=== PATIENT | female | born 1985 | race American Indian/Alaskan Native ===

== ENCOUNTER 2017-01-12 13:40 | Emergency (ER) | payer SELFPAY ==
[2017-01-12 14:26] LABS: Basophils % (Auto) 0.4 % (0.0-1.8); Eosinophils % (Auto) 0.4 % (0.0-4.3); Hematocrit 44.9 % (30.3-42.9); Hemoglobin 15.5 gm/dl (10.1-14.3); Mean Corpuscular HGB Conc 35 % (30-34); Mean Corpuscular Hemoglobin 31 pg (28-32); Mean Corpuscular Volume 90 fl (79-97); Platelet Count 202 K/mm3 (140-440); Red Blood Count 4.97 M/mm3 (3.65-5.03); Red Cell Distribution Width 13.8 % (13.2-15.2); White Blood Count 9.5 K/mm3 (4.5-11.0)
[2017-01-12 14:53] LABS: Alanine Aminotransferase 15 units/L (7-56); Albumin 3.9 g/dL (3.9-5); Albumin/Globulin Ratio 0.8 %; Alkaline Phosphatase 77 units/L (35-129); Anion Gap 18 mmol/L; Blood Urea Nitrogen 10 mg/dL (7-17); Calcium 9.4 mg/dL (8.4-10.2); Carbon Dioxide 26 mmol/L (22-30); Chloride 97.9 mmol/L (98-107); Glucose 86 mg/dL (65-100); Lipase 15 units/L (13-60); Potassium 4.4 mmol/L (3.6-5.0); Sodium 137 mmol/L (137-145); Total Protein 8.5 g/dL (6.3-8.2)
[2017-01-12 16:21] LABS: Bilirubin,Urine NEG (Negative); Blood,Urine MOD (Negative); Ketones,Urine NEG (Negative); Leukocyte Esterase,Urine LG (Negative); Nitrite,Urine POS (Negative); Urobilinogen,Urine < 2.0 mg/dL (<2.0)
[2017-01-12 16:24] LABS: WBC,Urine > 182.0 /HPF (0.0-6.0)
[2017-01-12 16:25] LABS: Bacteria,Urine 2+ /HPF (Negative)
[2017-01-12] MEDS ORDERED: TORADOL IV ONE (23:38)
[2017-01-12] MEDS ORDERED: NACL 0.9% 1000 ML 1,000 ML IV ONE (23:38)
[2017-01-12] MEDS ORDERED: ROCEPHIN/NS 1 GM/50 ML 1 GM/50 ML BAG IV ONE (23:38)
[2017-01-12] MEDS ORDERED: MORPHINE IV ONE (23:38)
[2017-01-12] MEDS ORDERED: ZOFRAN IV ONE (23:38)
--- NOTE | 2017-01-12 23:39 | Emergency Department Report ---
ED General Adult HPI - General Chief complaint: Abdominal Pain Stated complaint: ABDOMINAL PAIN Time Seen by Provider: 01/12/17 23:25 Source: patient Mode of arrival: Ambulatory Limitations: No Limitations - History of Present Illness Initial comments: This is a 31-year-old female. She was previously unknown to me. She does not have a primary care doctor. She denies chronic medical conditions. Denies a history of recent abdominal surgeries. The patient presents to the ER complaining of urinary frequency, bilateral flank pain, sensation of incomplete voiding, thirst but nausea, and positive subjective fever. Mild lower abdominal cramping. No vaginal discharge. No right lower quadrant pain. No vaginal bleeding. Symptoms have been constant for the past 3-4 days. Pain increases with range of motion and twisting, decreases with rest. -: Gradual Location: back, abdomen Radiation: back, abdomen Quality: aching Consistency: constant Improves with: rest Worsens with: movement Associated Symptoms: malaise, nausea/vomiting, weakness. denies: confusion, chest pain, cough, headaches, loss of appetite - Related Data Previous Rx's Medication Instructions Recorded Last Taken Type Acetaminophen/Codeine [Tylenol #3] 1 tab PO Q6H PRN #20 tab 07/07/13 Unknown Rx Methocarbamol [Robaxin] 750 mg PO Q8H PRN #15 tablet 07/07/13 Unknown Rx predniSONE [Deltasone] 50 mg PO QDAY #5 tab 07/07/13 Unknown Rx Cyclobenzaprine [Flexeril 10 MG 10 mg PO TID PRN #30 tablet 07/07/14 Unknown Rx TAB] Ibuprofen [Motrin 800 MG tab] 800 mg PO Q8H PRN #30 tablet 07/07/14 Unknown Rx oxyCODONE /ACETAMINOPHEN [Percocet 2 tab PO Q6HR PRN #30 tablet 07/07/14 Unknown Rx 5/325] Ibuprofen [Motrin] 600 mg PO Q8H PRN #30 tablet 01/13/17 Unknown Rx Levofloxacin [Levaquin] 750 mg PO QDAY #10 tablet 01/13/17 Unknown Rx Metoclopramide [Reglan] 10 mg PO QID PRN #30 tablet 01/13/17 Unknown Rx oxyCODONE [Roxicodone] 5 mg PO Q6HR PRN #15 tablet 01/13/17 Unknown Rx Allergies Allergy/AdvReac Type Severity Reaction Status Date / Time No Known Allergies Allergy Verified 01/12/17 14:05 ED Review of Systems ROS: Stated complaint: ABDOMINAL PAIN Other details as noted in HPI Constitutional: malaise Eyes: denies: vision change ENT: denies: epistaxis Respiratory: denies: cough Cardiovascular: denies: chest pain Gastrointestinal: abdominal pain, nausea Genitourinary: frequency Musculoskeletal: back pain Skin: denies: lesions Neurological: denies: headache ED Past Medical Hx - Past Medical History Hx Asthma: Yes Additional medical history: sciatica - Surgical History Additional Surgical History: - Social History Smoking Status: Current Every Day Smoker Substance Use Type: Alcohol - Medications Home Medications: Home Medications Medication Instructions Recorded Confirmed Last Taken Type Acetaminophen/Codeine [Tylenol #3] 1 tab PO Q6H PRN #20 tab 07/07/13 07/07/14 Unknown Rx Methocarbamol [Robaxin] 750 mg PO Q8H PRN #15 tablet 07/07/13 07/07/14 Unknown Rx predniSONE [Deltasone] 50 mg PO QDAY #5 tab 07/07/13 07/07/14 Unknown Rx Cyclobenzaprine [Flexeril 10 MG 10 mg PO TID PRN #30 tablet 07/07/14 Unknown Rx TAB] Ibuprofen [Motrin 800 MG tab] 800 mg PO Q8H PRN #30 tablet 07/07/14 Unknown Rx oxyCODONE /ACETAMINOPHEN [Percocet 2 tab PO Q6HR PRN #30 tablet 07/07/14 Unknown Rx 5/325] Ibuprofen [Motrin] 600 mg PO Q8H PRN #30 tablet 01/13/17 Unknown Rx Levofloxacin [Levaquin] 750 mg PO QDAY #10 tablet 01/13/17 Unknown Rx Metoclopramide [Reglan] 10 mg PO QID PRN #30 tablet 01/13/17 Unknown Rx oxyCODONE [Roxicodone] 5 mg PO Q6HR PRN #15 tablet 01/13/17 Unknown Rx ED Physical Exam - General Limitations: No Limitations General appearance: alert, in no apparent distress - Head Head exam: Present: atraumatic, normocephalic - Eye Eye exam: Present: normal appearance, EOMI. Absent: nystagmus - ENT ENT exam: Present: normal exam, normal orophraynx, mucous membranes moist, normal external ear exam - Neck Neck exam: Present: normal inspection, full ROM. Absent: tenderness, meningismus - Respiratory Respiratory exam: Present: normal lung sounds bilaterally. Absent: respiratory distress, wheezes, rales, rhonchi, stridor, chest wall tenderness, accessory muscle use, decreased breath sounds, prolonged expiratory - Cardiovascular Cardiovascular Exam: Present: regular rate, normal rhythm, normal heart sounds. Absent: bradycardia, tachycardia, irregular rhythm, systolic murmur, diastolic murmur, rubs, gallop - GI/Abdominal GI/Abdominal exam: Present: soft, tenderness (there is suprapubic tenderness. There is no rebound, guarding or peritoneal signs.), normal bowel sounds. Absent: distended, guarding, rebound, rigid - Extremities Exam Extremities exam: Present: normal inspection, full ROM, normal capillary refill. Absent: pedal edema, joint swelling, calf tenderness - Back Exam Back exam: Present: normal inspection, full ROM, CVA tenderness (R), CVA tenderness (L). Absent: tenderness - Neurological Exam Neurological exam: Present: alert, oriented X3, normal gait, other (Extraocular movements intact. Tongue midline. No facial droop. Facial sensation intact to light touch in the V1, V2, V3 distribution bilaterally. 5 and 5 strength in 4 extremities.. Sensation is intact to light touch in 4 extremities.). Absent : motor sensory deficit - Psychiatric Psychiatric exam: Present: normal affect, normal mood - Skin Skin exam: Present: warm, dry, intact, normal color. Absent: rash ED Course Vital Signs 01/12/17 01/13/17 01/13/17 14:05 00:10 01:31 Temperature 98.8 F Pulse Rate 99 H 94 H 99 H Respiratory 18 18 Rate Blood Pressure 140/90 Blood Pressure 136/84 131/80 [Right] O2 Sat by Pulse 98 98 97 Oximetry - EJ/Peripheral Line Arm L Time Out Performed: Yes Indications: other (IV is placed by myself to expedite treatment) Skin Cleansed in Sterile Fashion: Yes Size: 20 Dressing Placed: Tegaderm Patient Tolerated Procedure: well ED Medical Decision Making - Lab Data Result diagrams: 01/12/17 14:12 01/12/17 14:12 Vital Signs 01/12/17 01/13/17 14:05 00:10 Temperature 98.8 F Pulse Rate 99 H 94 H Respiratory 18 Rate Blood Pressure 140/90 Blood Pressure 136/84 [Right] O2 Sat by Pulse 98 98 Oximetry Lab Results 01/12/17 01/12/17 01/12/17 Range/Units 14:10 14:12 14:12 WBC 9.5 (4.5-11.0) K/mm3 RBC 4.97 (3.65-5.03) M/mm3 Hgb 15.5 H (10.1-14.3) gm/dl Hct 44.9 H (30.3-42.9) % MCV 90 (79-97) fl MCH 31 (28-32) pg MCHC 35 H (30-34) % RDW 13.8 (13.2-15.2) % Plt Count 202 (140-440) K/mm3 Lymph % (Auto) 17.5 (13.4-35.0) % [place] % (Auto) 9.7 H (0.0-7.3) % Eos % (Auto) 0.4 (0.0-4.3) % Baso % (Auto) 0.4 (0.0-1.8) % Lymph # 1.7 (1.2-5.4) K/mm3 [place] # 0.9 H (0.0-0.8) K/mm3 Eos # 0.0 (0.0-0.4) K/mm3 Baso # 0.0 (0.0-0.1) K/mm3 Seg Neutrophils % 72.0 H (40.0-70.0) % Seg Neutrophils # 6.8 (1.8-7.7) K/mm3 Sodium 137 (137-145) mmol/L Potassium 4.4 (3.6-5.0) mmol/L Chloride 97.9 L (98-107) mmol/L Carbon Dioxide 26 (22-30) mmol/L Anion Gap 18 mmol/L BUN 10 (7-17) mg/dL Creatinine 0.8 (0.7-1.2) mg/dL Estimated GFR > 60 ml/min BUN/Creatinine Ratio 12.50 % Glucose 86 (65-100) mg/dL Calcium 9.4 (8.4-10.2) mg/dL Total Bilirubin 0.50 (0.1-1.2) mg/dL AST 19 (5-40) units/L ALT 15 (7-56) units/L Alkaline Phosphatase 77 (35-129) units/L Total Protein 8.5 H (6.3-8.2) g/dL Albumin 3.9 (3.9-5) g/dL Albumin/Globulin Ratio 0.8 % Lipase 15 (13-60) units/L HCG, Qual (Negative) Urine Color Yellow (Yellow) Urine Turbidity Cloudy (Clear) Urine pH 5.0 (5.0-7.0) Ur Specific Lucien 1.011 (1.003-1.030) Urine Protein 100 mg/dl (Negative) mg/dL Urine Glucose (UA) Neg (Negative) mg/dL Urine Ketones Neg (Negative) mg/dL Urine Blood Mod (Negative) Urine Nitrite Pos (Negative) Urine Bilirubin Neg (Negative) Urine Urobilinogen < 2.0 (<2.0) mg/dL Ur Leukocyte Esterase Lg (Negative) Urine WBC (Auto) > 182.0 H (0.0-6.0) /HPF Urine RBC (Auto) 75.0 (0.0-6.0) /HPF U Epithel Cells (Auto) 1.0 (0-13.0) /HPF Urine Bacteria (Auto) 2+ (Negative) /HPF Urine WBC Clumps 3+ /HPF /15/17 Range/Units 14:12 WBC (4.5-11.0) K/mm3 RBC (3.65-5.03) M/mm3 Hgb (10.1-14.3) gm/dl Hct (30.3-42.9) % MCV (79-97) fl MCH (28-32) pg MCHC (30-34) % RDW (13.2-15.2) % Plt Count (140-440) K/mm3 Lymph % (Auto) (13.4-35.0) % [place] % (Auto) (0.0-7.3) % Eos % (Auto) (0.0-4.3) % Baso % (Auto) (0.0-1.8) % Lymph # (1.2-5.4) K/mm3 [place] # (0.0-0.8) K/mm3 Eos # (0.0-0.4) K/mm3 Baso # (0.0-0.1) K/mm3 Seg Neutrophils % (40.0-70.0) % Seg Neutrophils # (1.8-7.7) K/mm3 Sodium (137-145) mmol/L Potassium (3.6-5.0) mmol/L Chloride (98-107) mmol/L Carbon Dioxide (22-30) mmol/L Anion Gap mmol/L BUN (7-17) mg/dL Creatinine (0.7-1.2) mg/dL Estimated GFR ml/min BUN/Creatinine Ratio % Glucose (65-100) mg/dL Calcium (8.4-10.2) mg/dL Total Bilirubin (0.1-1.2) mg/dL AST (5-40) units/L ALT (7-56) units/L Alkaline Phosphatase (35-129) units/L Total Protein (6.3-8.2) g/dL Albumin (3.9-5) g/dL Albumin/Globulin Ratio % Lipase (13-60) units/L HCG, Qual Negative (Negative) Urine Color (Yellow) Urine Turbidity (Clear) Urine pH (5.0-7.0) Ur Specific Lucien (1.003-1.030) Urine Protein (Negative) mg/dL Urine Glucose (UA) (Negative) mg/dL Urine Ketones (Negative) mg/dL Urine Blood (Negative) Urine Nitrite (Negative) Urine Bilirubin (Negative) Urine Urobilinogen (<2.0) mg/dL Ur Leukocyte Esterase (Negative) Urine WBC (Auto) (0.0-6.0) /HPF Urine RBC (Auto) (0.0-6.0) /HPF U Epithel Cells (Auto) (0-13.0) /HPF Urine Bacteria (Auto) (Negative) /HPF Urine WBC Clumps /HPF - Medical Decision Making differential diagnosis: Urinary tract infection, pyelonephritis Assessment and plan: 31-year-old female with irritative and obstructive urinary symptoms, urinalysis suggestive of UTI, and CVA tenderness, most likely simple pyelonephritis. She is afebrile, with reassuring vital signs, and is tolerating liquid feeds. She felt improved after IV fluids, pain medication, nausea medication, she is loaded with 1 g of ceftriaxone. She is young, with no medical comorbidities, and is a suitable candidate for outpatient treatment. She will be discharged with pain medication, nausea medication, oral antibiotic therapy, and instructions to follow up with outpatient primary care. Return precautions were reviewed. Critical care attestation.: If time is entered above; I have spent that time in minutes in the direct care of this critically ill patient, excluding procedure time. ED Disposition Clinical Impression: Pyelonephritis Disposition: DC-01 TO HOME OR SELFCARE Is pt being admited?: No Does the pt Need Aspirin: No Condition: Stable Instructions: Acute Pyelonephritis (ED) Additional Instructions: Symptoms most likely coming from urinary tract infection, kidney infection. Do not consume alcohol for the next 2 weeks. Cultures was sent today, results will be available in the next 3-5 days. Have a primary care doctor contact the medical records department to obtain culture results. Take the pain medication , nausea medication, antibiotics as directed. Return to the ER right away with new pain, worsened pain, migration of pain, intractable nausea or vomiting, confusion, inability to tolerate liquid feeds, new, worsening or different symptoms. Prescriptions: Ibuprofen [Motrin] 600 mg PO Q8H PRN #30 tablet PRN Reason: Pain Levofloxacin [Levaquin] 750 mg PO QDAY #10 tablet Metoclopramide [Reglan] 10 mg PO QID PRN #30 tablet PRN Reason: Nausea oxyCODONE [Roxicodone] 5 mg PO Q6HR PRN #15 tablet PRN Reason: Pain Referrals: PRIMARY CAREMD [Primary Care Provider] - 3-5 Days NETO BECKER MD [Staff Physician] - 3-5 Days VERO FISCHER MD [Staff Physician] - 3-5 Days [facility] [Provider Group] - 3-5 Days Forms: Work/School Release Form(ED)
[2017-01-13 01:32] VITALS: BP 131/80
== END 2017-01-13 01:57 | disposition home or self-care (01) ==
LOC: ED 13:40
DX: N12 Tubulo-interstitial nephritis, not specified as acute or chronic (principal); J45.909 Unspecified asthma, uncomplicated; F17.200 Nicotine dependence, unspecified, uncomplicated
CPT/HCPCS: 36415; 36569; 80053; 81001; 83690; 84703; 85025; 87086; 96365; 96375; 99283; J0696; J1885; J2270; J2405; J7030

== ENCOUNTER 2021-05-16 22:29 | Emergency (ER) | payer SELFPAY ==
[2021-05-16] MEDS ORDERED: IBUPROFEN 800 MG TAB PO ONE (23:07)
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
[2021-05-17 02:16] VITALS: BP 138/98
== END 2021-05-17 02:00 | disposition home or self-care (01) ==
LOC: ED 22:29
DX: S93.402A Sprain of unspecified ligament of left ankle, initial encounter (principal); J45.909 Unspecified asthma, uncomplicated; F10.20 Alcohol dependence, uncomplicated; F17.200 Nicotine dependence, unspecified, uncomplicated; V43.92XA Unspecified car occupant injured in collision with other type car in traffic accident, initial encounter; Y93.89 Activity, other specified; Y92.89 Other specified places as the place of occurrence of the external cause; Y99.8 Other external cause status
CPT/HCPCS: 99283

== ENCOUNTER 2021-08-26 16:00 | Emergency (ER) | payer BC, OTHER ==
[2021-08-26] MEDS ORDERED: SODIUM CHLORIDE 0.9% 1000 ML 1,000 ML IV ONE (16:35)
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
[2021-08-26 17:14] LABS: Basophils % (Auto) 0.4 % (0.0-1.8); Eosinophils # (Auto) 0.1 K/mm3 (0.0-0.4); Eosinophils % (Auto) 0.9 % (0.0-4.3); Hematocrit 42.3 % (30.3-42.9); Hemoglobin 14.2 gm/dl (10.1-14.3); Lymphocytes # (Auto) 1.8 K/mm3 (1.2-5.4); Lymphocytes % (Auto) 19.2 % (13.4-35.0); Mean Corpuscular HGB Conc 34 % (30-34); Mean Corpuscular Volume 94 fl (79-97); Monocytes # (Auto) 0.7 K/mm3 (0.0-0.8); Platelet Count 280 K/mm3 (140-440); Red Blood Count 4.52 M/mm3 (3.65-5.03); Red Cell Distribution Width 14.5 % (13.2-15.2)
[2021-08-26 17:37] LABS: Alanine Aminotransferase 13 units/L (7-56); Albumin 3.7 g/dL (3.9-5); BUN/Creatinine Ratio 19; Blood Urea Nitrogen 15 mg/dL (7-17); Calcium 9.5 mg/dL (8.4-10.2); Hemolysis Index 2
[2021-08-26] MEDS ORDERED: CLINDAMYCIN 600 MG/50 mL 600 MG/50 ML BAG IV ONE (17:45)
[2021-08-26] MEDS: KETOROLAC 30 MG/1 ML INJ IV ONE ×2 (18:32→18:42)
--- NOTE | 2021-08-26 18:51 | Emergency Department Report ---
ED General Adult HPI - General Chief complaint: Pain General Stated complaint: FOOT ABSCESS Time Seen by Provider: 08/26/21 16:35 Source: patient Mode of arrival: Ambulatory Limitations: No Limitations - History of Present Illness Initial comments: Resident states she went to urgent care d/t abscess on foot and urgent care sent her here because they couldn't drain it. -: Gradual, week(s) Severity scale (0 -10): 0 Quality: aching Consistency: constant Improves with: none Worsens with: none - Related Data Previous Rx's Medication Instructions Recorded Last Taken Type Acetaminophen/Codeine [Tylenol #3] 1 tab PO Q6H PRN #20 tab 07/07/13 Unknown Rx methOCARBAMOL [Robaxin] 750 mg PO Q8H PRN #15 tablet 07/07/13 Unknown Rx predniSONE [Deltasone] 50 mg PO QDAY #5 tab 07/07/13 Unknown Rx Cyclobenzaprine [Flexeril 10 MG 10 mg PO TID PRN #30 tablet 07/07/14 Unknown Rx TAB] Ibuprofen [Motrin 800 MG tab] 800 mg PO Q8H PRN #30 tablet 07/07/14 Unknown Rx oxyCODONE /ACETAMINOPHEN [Percocet 2 tab PO Q6HR PRN #30 tablet 07/07/14 Unknown Rx 5/325] Ibuprofen [Motrin] 600 mg PO Q8H PRN #30 tablet 01/13/17 Unknown Rx Metoclopramide [Reglan] 10 mg PO QID PRN #30 tablet 01/13/17 Unknown Rx levoFLOXacin [Levaquin] 750 mg PO QDAY #10 tablet 01/13/17 Unknown Rx oxyCODONE [Roxicodone] 5 mg PO Q6HR PRN #15 tablet 01/13/17 Unknown Rx Cyclobenzaprine [Flexeril] 10 mg PO TID PRN #21 tablet 05/17/21 Unknown Rx Naproxen 500 mg PO BID PRN #30 tablet 05/17/21 Unknown Rx Doxycycline Hyclate 100 mg PO BID #14 cap 08/26/21 Unknown Rx Ketorolac [Toradol] 10 mg PO Q6H PRN #14 08/26/21 Unknown Rx Allergies Allergy/AdvReac Type Severity Reaction Status Date / Time No Known Allergies Allergy Verified 01/12/17 14:05 ED Review of Systems ROS: Stated complaint: FOOT ABSCESS Other details as noted in HPI Constitutional: denies: chills, fever Eyes: denies: eye pain, eye discharge, vision change ENT: denies: ear pain, throat pain Respiratory: denies: cough, shortness of breath, wheezing Cardiovascular: denies: chest pain, palpitations Endocrine: no symptoms reported Gastrointestinal: denies: abdominal pain, nausea, diarrhea Genitourinary: denies: urgency, dysuria, discharge Musculoskeletal: denies: back pain, joint swelling, arthralgia Skin: denies: rash, lesions Neurological: denies: headache, weakness, paresthesias Psychiatric: denies: anxiety, depression Hematological/Lymphatic: denies: easy bleeding, easy bruising ED Past Medical Hx - Past Medical History Previous Medical History?: No Hx Hypertension: No Hx Asthma: Yes Additional medical history: sciatica - Surgical History Past Surgical History?: No Additional Surgical History: - Social History Smoking Status: Never Smoker - Medications Home Medications: Home Medications Medication Instructions Recorded Confirmed Last Taken Type Acetaminophen/Codeine [Tylenol #3] 1 tab PO Q6H PRN #20 tab 07/07/13 07/07/14 Unknown Rx methOCARBAMOL [Robaxin] 750 mg PO Q8H PRN #15 tablet 07/07/13 07/07/14 Unknown Rx predniSONE [Deltasone] 50 mg PO QDAY #5 tab 07/07/13 07/07/14 Unknown Rx Cyclobenzaprine [Flexeril 10 MG 10 mg PO TID PRN #30 tablet 07/07/14 Unknown Rx TAB] Ibuprofen [Motrin 800 MG tab] 800 mg PO Q8H PRN #30 tablet 07/07/14 Unknown Rx oxyCODONE /ACETAMINOPHEN [Percocet 2 tab PO Q6HR PRN #30 tablet 07/07/14 Unknown Rx 5/325] Ibuprofen [Motrin] 600 mg PO Q8H PRN #30 tablet 01/13/17 Unknown Rx Metoclopramide [Reglan] 10 mg PO QID PRN #30 tablet 01/13/17 Unknown Rx levoFLOXacin [Levaquin] 750 mg PO QDAY #10 tablet 01/13/17 Unknown Rx oxyCODONE [Roxicodone] 5 mg PO Q6HR PRN #15 tablet 01/13/17 Unknown Rx Cyclobenzaprine [Flexeril] 10 mg PO TID PRN #21 tablet 05/17/21 Unknown Rx Naproxen 500 mg PO BID PRN #30 tablet 05/17/21 Unknown Rx Doxycycline Hyclate 100 mg PO BID #14 cap 08/26/21 Unknown Rx Ketorolac [Toradol] 10 mg PO Q6H PRN #14 08/26/21 Unknown Rx ED Physical Exam - General Limitations: No Limitations General appearance: alert, in no apparent distress - Head Head exam: Present: atraumatic, normocephalic - Eye Eye exam: Present: normal appearance - ENT ENT exam: Present: mucous membranes moist - Neck Neck exam: Present: normal inspection - Respiratory Respiratory exam: Present: normal lung sounds bilaterally. Absent: respiratory distress - Cardiovascular Cardiovascular Exam: Present: normal rhythm, tachycardia. Absent: systolic murmur, diastolic murmur, rubs, gallop - GI/Abdominal GI/Abdominal exam: Present: soft, normal bowel sounds - Extremities Exam Extremities exam: Present: normal inspection - Expanded Lower Extremity Exam Left Foot/Toe exam: Present: tenderness, swelling, erythema, tenderness at base of 5th metatarsal - Back Exam Back exam: Present: normal inspection - Neurological Exam Neurological exam: Present: alert, oriented X3 - Psychiatric Psychiatric exam: Present: normal affect, normal mood - Skin Skin exam: Present: warm, dry, intact, normal color. Absent: rash ED Course Vital Signs 08/26/21 08/26/21 08/26/21 16:20 17:30 17:58 Temperature 99.1 F 98.2 F Pulse Rate 121 H 117 H Respiratory 20 18 Rate Blood Pressure 172/112 Blood Pressure 140/96 [Left] O2 Sat by Pulse 98 98 100 Oximetry - Reevaluation(s) Reevaluation #1: 08/26/21 18:48 work up showed normal wbc , x ray shows no osteo , abx given spoek with dr Epstein she will see him in office ED Medical Decision Making - Lab Data Result diagrams: 08/26/21 16:54 08/26/21 16:54 Critical care attestation.: If time is entered above; I have spent that time in minutes in the direct care of this critically ill patient, excluding procedure time. ED Disposition Clinical Impression: Foot abscess, left Disposition: 01 HOME / SELF CARE / HOMELESS Is pt being admited?: No Does the pt Need Aspirin: No Condition: Critical Referrals: STELLA SAGE MD [Primary Care Provider] - 3-5 Days SVEN EPSTEIN MD [Staff Physician] - 3-5 Days
[2021-08-26 20:30] VITALS: BP 130/89
== END 2021-08-26 20:27 | disposition home or self-care (01) ==
LOC: ED 16:00
DX: L02.612 Cutaneous abscess of left foot (principal); J45.909 Unspecified asthma, uncomplicated; Z98.890 Other specified postprocedural states
CPT/HCPCS: 36415; 73630; 80053; 82140; 85025; 96365; 96375; 99284; J1885; J7030; J7502; 96361; Q0162

== ENCOUNTER 2021-09-15 10:26 | Outpatient (CLI) | payer BC ==
[2021-09-15] MEDS ORDERED: LIDOCAINE (4%) 40 MG/ML TOPICAL SOLN 50 ML BOTTLE TP ONE (10:55)
== END 2021-09-15 10:27 | disposition home or self-care (01) ==
LOC: WOUND 10:26
PROVIDERS: ATTEND Surgery
DX: L02.612 Cutaneous abscess of left foot (principal); S91.302A Unspecified open wound, left foot, initial encounter; J45.909 Unspecified asthma, uncomplicated; F41.9 Anxiety disorder, unspecified; F32.A Depression, unspecified; F10.20 Alcohol dependence, uncomplicated; F17.200 Nicotine dependence, unspecified, uncomplicated; X58.XXXA Exposure to other specified factors, initial encounter; Y93.89 Activity, other specified; Y92.89 Other specified places as the place of occurrence of the external cause; Y99.8 Other external cause status

== ENCOUNTER 2021-09-22 10:34 | Outpatient (CLI) | payer BC ==
[2021-09-22] MEDS ORDERED: LIDOCAINE (4%) 40 MG/ML TOPICAL SOLN 50 ML BOTTLE TP ONE (10:38)
== END 2021-09-22 10:35 | disposition home or self-care (01) ==
LOC: WOUND 10:34
PROVIDERS: ATTEND Surgery
DX: L02.612 Cutaneous abscess of left foot (principal); S91.302D Unspecified open wound, left foot, subsequent encounter; J45.909 Unspecified asthma, uncomplicated; F10.20 Alcohol dependence, uncomplicated; F17.200 Nicotine dependence, unspecified, uncomplicated; X58.XXXD Exposure to other specified factors, subsequent encounter
CPT/HCPCS: 99214; G0463

== ENCOUNTER 2021-11-19 23:52 | Emergency (ER) | payer SELFPAY ==
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
[2021-11-20] MEDS ORDERED: IBUPROFEN 600 MG TAB PO ONE (08:11)
[2021-11-20 08:22] VITALS: BP 142/92
== END 2021-11-20 09:00 | disposition home or self-care (01) ==
LOC: ED 23:52
DX: S70.00XA Contusion of unspecified hip, initial encounter (principal); M79.18 Myalgia, other site; J45.909 Unspecified asthma, uncomplicated; Z79.899 Other long term (current) drug therapy; V89.2XXA Person injured in unspecified motor-vehicle accident, traffic, initial encounter; Y93.89 Activity, other specified; Y92.89 Other specified places as the place of occurrence of the external cause; Y99.8 Other external cause status
CPT/HCPCS: 71046; 72170; 99283